=== PATIENT | male | born 1955 | race Caucasian/White ===

== ENCOUNTER 2019-06-06 10:10 | Inpatient (IN) | payer OTHER ==
[~2019-06-06] VITALS: Ht 177.8 cm; Wt 93.1 kg
[~2019-06-06 10:10] MED LIST: ASPI81CH33 PO; CALC600T60 PO; CENTTAB16 PO; FISH1000 PO; FLOM0.4C39 PO; HEPARIN SOD (PORCINE) 5000 UNITS/ML VIAL (J1644 PER 1000UNITS) SQ ONE; LIDOCAINE 2% INJ 100 MG/5 ML SDV (FOR ANES.) As Ordered ONE; LIPI20TA PO; LR 1,000 ML IV ONE; MIDAZOLAM INJ 2 MG/2 ML VIAL (J2250) As Ordered ONE; ONDANSETRON 4MG/2ML VIAL (J2405) As Ordered ONE; PHENYLephrine HCL 500 MCG/5 ML (100MCG/ML) SYRINGE (J2370) As Ordered ONE; ROCURONIUM BROMIDE 50 MG/5 ML VIAL As Ordered ONE; SUGAMMADEX SODIUM 500 MG/5 ML VIAL (BRIDION) As Ordered ONE; VITA100016 PO; VITA100024 PO; ZYRTTAB8 PO; ceFAZolin SOD 2 GM in IV 1 EA IV ONE; dexameTHASONE 4 MG/ML 1ML VIAL (J1100) As Ordered ONE; ePHEDrine SULFATE 25 MG/5 ML(5MG/ML) SYRINGE As Ordered ONE; fentaNYL 250 MCG/5 ML INJECTION (J3010) As Ordered ONE; propofoL 200 MG/20 ML VIAL As Ordered ONE
[2019-06-06] MEDS ORDERED: LIDOCAINE 1% SDV INJ 30 ML VIAL As Ordered ONE (11:18)
[2019-06-06] MEDS ORDERED: BUPIVACAINE HCL 0.25% 30 ML VIAL As Ordered ONE (11:18)
[2019-06-06] MEDS: ceFAZolin SOD 1 GM in D5W MINI-BAG PLUS 50 ML IV SCH ×2 (11:55→20:07)
[2019-06-06] MEDS ORDERED: ACETAMINOPHEN TAB 650MG DOSE (2X325MG) PO PRN (12:00)
[2019-06-06] MEDS ORDERED: MORPHINE 2 MG/ML 1ML VIAL (J2270) IV PRN ×2 (12:00→17:15)
[2019-06-06] MEDS ORDERED: PERCOCET 5MG/325MG TAB PO PRN ×3 (12:00→17:15)
[2019-06-06] MEDS ORDERED: ONDANSETRON 4MG/2ML VIAL (J2405) IV PRN ×2 (12:00→17:15)
[2019-06-06] MEDS: HEPARIN SOD (PORCINE) 5000 UNITS/ML VIAL (J1644 PER 1000UNITS) SC SCH ×2 (12:02→21:18)
[2019-06-06] MEDS ORDERED: ACETAMINOPHEN 1000MG 100ML IV BTL (OFIRMEV) (J0131 PER 10MG) As Ordered ONE (12:04)
[2019-06-06] MEDS ORDERED: PHENYLephrine HCL 500 MCG/5 ML (100MCG/ML) SYRINGE (J2370) As Ordered ONE (12:08)
[2019-06-06] MEDS ORDERED: ePHEDrine SULFATE 25 MG/5 ML(5MG/ML) SYRINGE As Ordered ONE (12:08)
[2019-06-06] MEDS ORDERED: GLYCOPYRROLATE INJ 0.2 MG/ML 2 ML VIAL As Ordered ONE (12:25)
[2019-06-06] MEDS ORDERED: ROCURONIUM BROMIDE 50 MG/5 ML VIAL As Ordered ONE (12:48)
[2019-06-06] MEDS ORDERED: HYDROmorphone HCL 2 MG/ML 1ML VIAL (J1170) As Ordered ONE (13:28)
--- NOTE | 2019-06-06 17:09 | ROOPDOC ---
[facility] Report Of Operation Report of Operation DATE OF PROCEDURE: 06/06/19 PREPROCEDURE DIAGNOSES: Prostate Cancer. POSTPROCEDURE DIAGNOSES: Prostate Cancer. PROCEDURE: Robotic-assisted Laparoscopic Radical Prostatectomy with Lysis of Adhesions and Anterior Bladder Neck Reconstruction. SURGEON: Malvin Brooks MD [employer]: Leela Prieto NP ANESTHESIA: General. OPERATIVE INDICATIONS: This is a 64 year old male with clinical T1c [place] 3+3 prostate cancer, here today for treatment. DESCRIPTION OF PROCEDURE: The patient was brought to the operating room and general anesthesia was induced. Prophylactic antibiotics were infused. He was then placed in the supine position and prepped and draped in the usual sterile fashion. At this point, a Somers catheter was inserted into the bladder and the balloon was filled with 10 mL of sterile water. We then made a midline incision just above the umbilicus for an 8 mm port. A Veress needle was utilized to achieve pneumoperitoneum. Next, an 8 mm port was inserted into the incision and subsequently a camera was inserted. There were no injuries from the Veress needle or initial trocar placement. Then three robotic ports were placed in the usual configuration in line just below the level of the umbilicus. An 12 mm assistant store manager operations port was inserted lateral to the camera port. Once all the ports were placed, the robot was docked. Additional lysis of adhesions between the sigmoid colon and abdominal wall was then performed. Of note, the sigmoid colon was adhered to the side wall more than normal. I therefore had to carefully dissect it off the side wall. There were no bowel injuries when this was done. The bladder was then released from the anterior abdominal wall using electrocautery. Once the bladder was dropped, the fat overlying the prostate was cleared using electrocautery. The superficial dorsal vein was controlled with electrocautery. The endopelvic fascia was opened on both sides and the dorsal venous complex was cleared. Next , a #0 Vicryl [id number] stitch was placed around the dorsal venous complex. Once that was done, the bladder was opened and dissected away from the prostate. Of note, the prostate was very large and was growing far into the bladder. As a result, once the prostate was dissected away from the bladder, it left a large bladder neck. At this point, the prostate was lifted up. The vasa deferentia were identified in the midline. They were ligated and transected. The seminal vesicles were also dissected bilaterally. While doing this the seminal vesicles were inadvertently detached from the prostate. The rectum was safely mobilized away from the prostate. The neurovascular bundles were carefully dissected off the prostate on both sides using cold scissors. I then ligated and transected bilateral prostatic pedicles using the Harmonic scalpel. The pedicles were carried towards the apex. After taking care of the pedicles and mobilizing the rectum off the prostate below, the prostate was only connected by the urethra. At this point, the dorsal venous complex was transected with electrocautery. The urethra was then opened and the catheter was withdrawn and the posterior urethra was transected, thus freeing the prostate. At this point, we checked for hemostasis and it appeared very good. Once hemostasis was confirmed, I then moved on to perform the vesicourethral anastomosis. The vesicourethral anastomosis was performed in running fashion using a Quill stitch. Given the large bladder neck an anterior bladder neck reconstruction was done to tailor down the bladder neck. Once this was done, the final #20-Nepali Somers catheter was placed. The balloon was filled with 15 mL of sterile water. Upon completion of the vesicourethral anastomosis, it was tested by filling the bladder with sterile saline. The anastomosis appeared to be watertight. At this point, the prostate and seminal vesicles were placed in an Endo Catch bag for future retrieval. A Jacob-Mckeon drain was brought in through the left robotic port skin site and the drain was positioned anterior to the bladder. The robot was then undocked. A Anish-Tangela fascial closure device was utilized to place a #0 Vicryl suture through the fascia of the 12 mm assistant store manager operations port. The drain was secured to the skin with #2-0 Ethilon suture. The prostate and seminal vesicles were then extracted from the camera port site after the skin was extended. The fascia in this incision was then closed with a running #0 Vicryl stitch. Next, all the remaining ports were removed and there did not appear to be any bleeding from any of the port sites. The previously placed #0 Vicryl free ties through the assistant store manager operations port were then tied down and all incisions were irrigated. Last, all of the incisions were closed with running subcuticular #4-0 Monocryl sutures. Local anesthesia was applied. Dermabond was then applied to the incisions. This marked the conclusion of the procedure. The patient was then awakened from anesthesia and transported to the recovery room in stable condition. ESTIMATED BLOOD LOSS: 200mL. COMPLICATIONS: None. SPECIMENS: Prostate and seminal vesicles. PLAN: The patient will be admitted to the hospital postoperatively, and he will likely be discharged home within the next 1-2 days. MALVIN BROOKS MD Jun 06, 2019 17:09
[2019-06-06] MEDS ORDERED: fentaNYL 100 MCG/2 ML INJECTION (J3010) IV PRN (17:15)
[2019-06-06] MEDS ORDERED: LR 1,000 ML IV SCH (17:15)
[2019-06-06 17:19] LABS: HEMATOCRIT 43.9 % (42.0-52.0); HEMOGLOBIN 15.3 g/dl (13.5-17.5); MEAN CORPUSCULAR HEMOGLOBIN 31.2 pg (27.0-33.0); MEAN CORPUSCULAR HGB CONC 34.9 g/dl (32.0-36.5); MEAN CORPUSCULAR VOLUME 89.6 fl (80.0-96.0); PLATELET COUNT, AUTOMATED 214 10^3/uL (150-450); WHITE BLOOD COUNT 12.4 10^3/uL (4.0-10.0)
[2019-06-06 17:44] LABS: CALCIUM LEVEL 8.4 MG/DL (8.8-10.2); CREATININE FOR GFR 1.38 MG/DL (0.70-1.30); GLOMERULAR FILTRATION RATE 55.4 (>49); POTASSIUM SERUM 4.6 MEQ/L (3.5-5.1)
[2019-06-06] MEDS: NS 1,000 ML IV SCH (18:43)
[2019-06-06 19:47] VITALS: BP 128/69
[2019-06-06 20:00] VITALS: O2SAT 93
[2019-06-06 20:47] VITALS: BP 125/69
[2019-06-06] MEDS: ATORVASTATIN 20 MG TAB PO SCH ×2 (21:00→21:18)
[2019-06-06] MEDS: DOCUSATE SODIUM 100 MG CAP PO SCH ×2 (21:00→21:18)
[2019-06-06 21:47] VITALS: BP 121/64
[2019-06-06 22:47] VITALS: BP 122/66
[2019-06-07 02:00] VITALS: BP 125/58
[2019-06-07 05:00] VITALS: O2SAT 95
[2019-06-07] MEDS: HEPARIN SOD (PORCINE) 5000 UNITS/ML VIAL (J1644 PER 1000UNITS) SC SCH ×2 (05:24→13:00)
[2019-06-07] MEDS: NS 1,000 ML IV SCH (05:25)
[2019-06-07 06:00] VITALS: BP 120/66
[2019-06-07 06:14] LABS: HEMATOCRIT 38.6 % (42.0-52.0); HEMOGLOBIN 13.5 g/dl (13.5-17.5); MEAN CORPUSCULAR HEMOGLOBIN 31.1 pg (27.0-33.0); MEAN CORPUSCULAR VOLUME 88.9 fl (80.0-96.0); PLATELET COUNT, AUTOMATED 214 10^3/uL (150-450); RED BLOOD COUNT 4.34 10^6/uL (4.30-6.10); WHITE BLOOD COUNT 10.9 10^3/uL (4.0-10.0)
[2019-06-07 06:49] LABS: BLOOD UREA NITROGEN 20 MG/DL (7-18); CALCIUM LEVEL 8.9 MG/DL (8.8-10.2); CARBON DIOXIDE LEVEL 23 MEQ/L (21-32); CHLORIDE LEVEL 107 MEQ/L (98-107); CREATININE FOR GFR 1.14 MG/DL (0.70-1.30); GLOMERULAR FILTRATION RATE > 60.0 (>49); GLUCOSE, FASTING 110 MG/DL (70-100); POTASSIUM SERUM 4.5 MEQ/L (3.5-5.1); SODIUM LEVEL 139 MEQ/L (136-145)
--- NOTE | 2019-06-07 08:25 | IPNPDOC ---
Subjective Review oF Systems Chief Complaint The patient is a 64-year-old male admitted with a reason for visit of Prostate Cancer. Events since Last Encounter No acute events o/n. Good pain control. Patient had n/v up until around 9pm. Notes that he feels much better now. Has not ambulated yet. No f/c/ns. Objective Physical Examination General Exam: Alert, Cooperative, No Acute Distress ABDOMEN EXAM: Soft, Tenderness (mild), Other (incisions clean/dry/intact; MILAGRO w/ serosanguinous output) Skin Exam: Nl turgor and temperature Neuro Exam: Normal Speech Psych Exam: Mental status NL, Mood NL Other physical findings catheter draining light pink urine Vital Signs/I&O Vital Signs Date Time Temp Pulse Resp B/P (MAP) Pulse Ox O2 Delivery O2 Flow Rate FiO2 06/07/19 06:00 98.4 61 20 120/66 (84) 99 Room Air 06/07/19 02:00 2.0 I&O- Last 24 Hours up to 6 AM 06/07/19 06:00 Intake Total 4250 ml Output Total 1490 ml Balance 2760 ml Laboratory Data Labs 24H Laboratory Tests 2 06/06/19 17:04: Nucleated Red Blood Cells % (auto) 0.0, Anion Gap 8, Glomerular Filtration Rate 55.4, Calcium Level 8.4L 06/07/19 06:00: Nucleated Red Blood Cells % (auto) 0.0, Anion Gap 9, Glomerular Filtration Rate > 60.0, Calcium Level 8.9 CBC/BMP Laboratory Tests 06/06/19 17:04 06/07/19 06:00 Assessment/Plan Date Seen The patient was seen on 06/07/19. Patient Summary This is a 64 y/o M POD1 s/p RALP. Hb 13.5. Cr. 1.1. Good UOP. Normal MILAGRO output. Plan/VTE VTE Prophylaxis Ordered?: Yes VTE Exclusion Mechanical Proph: N/A:VTE Prophy Ordered VTE Exclusion Pharmacological: N/A:VTE Prophy Ordered Plan/Urinary Catheter Urinary Catheter: Other Catheter: (catheter will need to stay in for at least 7 days for healing of vesicourethral anastomosis) Plan - d/c IVF - strict I/Os - percocet prn pain - SCDs in bed - ambulate - SQH - incentive spirometry - advance diet as tolerated - possible discharge home later today w/ catheter MALVIN BROOKS MD Jun 07, 2019 08:25
[2019-06-07] MEDS: DOCUSATE SODIUM 100 MG CAP PO SCH (09:05)
[2019-06-07 10:00] VITALS: BP 121/62
[2019-06-07 14:00] VITALS: BP 108/56
[2019-06-07] MEDS ORDERED: DOCU100C16 PO (14:55)
[2019-06-07] MEDS ORDERED: PERCOCET PO (14:55)
[2019-06-07] MEDS ORDERED: CIPR-249 PO (14:55)
--- NOTE | 2019-06-07 15:39 | DSES ---
DATE OF ADMISSION: 06/06/2019 DATE OF DISCHARGE: 06/07/2019 ADMISSION DIAGNOSIS: Prostate cancer. DISCHARGE DIAGNOSES: Prostate cancer. ADMITTING PHYSICIAN: Pelon Johnson MD DISCHARGE PHYSICIAN: Pelon Johnson MD PROCEDURES PERFORMED: Robotic assisted laparoscopic radical prostatectomy on 06/06/2019. HISTORY OF PRESENT ILLNESS: This is a 64-year-old male, who was diagnosed with prostate cancer and underwent the above-listed procedure for treatment. He was admitted to the hospital postoperatively. HOSPITALIZATION COURSE: The patient was admitted to the hospital after undergoing the above-listed procedure. His postoperative course was unremarkable. Of note, he did have some nausea and vomiting the night of surgery but this resolved by the morning after surgery. On postoperative day #1, his diet was advanced as tolerated and he was tolerating a regular diet. He ambulated well. He had very good pain control with oral pain medication. His labs were notable for stable hemoglobin and a creatinine value of 1.1. He had excellent urine output and minimal output from his Jacob-Mckeon drain. Since he was doing well on postoperative day #1, he was deemed ready for discharge home. His Jacob-Mckeon drain was removed prior to discharge. He was discharged home with his catheter in place with the plan for him to followup in the urology clinic in approximately 1 week for catheter removal and to discuss pathology results. edited: 06/08/2019 0716 tkf CACHORRO
== END 2019-06-07 15:30 | disposition home or self-care (01) | DRG 708 ==
LOC: M OR 10:10 → M MSPAV 18:38
PROVIDERS: ADMIT Urology; ATTEND Urology
PROC: 0TSC4ZZ Reposition Bladder Neck, Percutaneous Endoscopic Approach (ICD-10-PCS; 2019-06-06)
PROC: 8E0W4CZ Robotic Assisted Procedure of Trunk Region, Percutaneous Endoscopic Approach (ICD-10-PCS; 2019-06-06)
PROC: 0VT04ZZ Resection of Prostate, Percutaneous Endoscopic Approach (ICD-10-PCS; principal; 2019-06-06 12:30)
DX: C61 Malignant neoplasm of prostate (principal); K66.0 Peritoneal adhesions (postprocedural) (postinfection); E78.00 Pure hypercholesterolemia, unspecified; Z98.42 Cataract extraction status, left eye; Z79.82 Long term (current) use of aspirin; Z79.899 Other long term (current) drug therapy

== ENCOUNTER → 2019-07-13 | Outpatient (CLI) | payer OTHER ==
[~2019-07-13] MED LIST changes: +CIPR-249 PO; +DOCU100C16 PO; -HEPARIN SOD (PORCINE) 5000 UNITS/ML VIAL (J1644 PER 1000UNITS) SQ ONE; -LIDOCAINE 2% INJ 100 MG/5 ML SDV (FOR ANES.) As Ordered ONE; -LR 1,000 ML IV ONE; -MIDAZOLAM INJ 2 MG/2 ML VIAL (J2250) As Ordered ONE; -ONDANSETRON 4MG/2ML VIAL (J2405) As Ordered ONE; +PERCOCET PO; -PHENYLephrine HCL 500 MCG/5 ML (100MCG/ML) SYRINGE (J2370) As Ordered ONE; -ROCURONIUM BROMIDE 50 MG/5 ML VIAL As Ordered ONE; -SUGAMMADEX SODIUM 500 MG/5 ML VIAL (BRIDION) As Ordered ONE; -ceFAZolin SOD 2 GM in IV 1 EA IV ONE; -dexameTHASONE 4 MG/ML 1ML VIAL (J1100) As Ordered ONE; -ePHEDrine SULFATE 25 MG/5 ML(5MG/ML) SYRINGE As Ordered ONE; -fentaNYL 250 MCG/5 ML INJECTION (J3010) As Ordered ONE; -propofoL 200 MG/20 ML VIAL As Ordered ONE
== END ==
LOC: M WUC 11:19
PROVIDERS: ATTEND Urology
DX: C61 Malignant neoplasm of prostate (principal)